=== PATIENT | female | born 1980 | race Caucasian/White ===

== ENCOUNTER 2024-12-13 11:21 | Emergency (ER) | payer OTHER, SELFPAY ==
[2024-12-13 11:24] VITALS: BP 150/94
--- NOTE | 2024-12-13 12:12 | ED.GENMED ---
History of Present Illness
General
Chief Complaint: Abdominal Pain
Source: patient and career development facilitator
Exam Limitations: none
Time Seen by Provider: 12/13/24 11:53
History of Present Illness
History of Present Illness:
44yoF with a history of hyperlipidemia, hypothyroidism, bipolar disorder, intellectual disability presenting with her aides for evaluation of abdominal pain. Patient woke up this morning and was complaining of pain near her periumbilical region.
She is also experiencing nausea and had 4 episodes of vomiting. She was asymptomatic when going to bed yesterday evening. Of note, patient was at [facility] yesterday for the first time the season. She is otherwise asymptomatic and denies any
fevers, diarrhea, urinary symptoms. No previous abdominal surgeries.
Phy Exam
General Physical Exam
General Presentation: well appearing and no apparent distress
General Skin: warm and dry
General Habitus: normal
ENT Exam
ENT Exam: normocephalic
Cardiovascular Exam
Cardiovascular Exam: regular rate/rhythm
Pulmonary Exam
Pulmonary Exam: lungs clear, no respiratory distress, no rales, no crackles, no rhonchi and no wheezing
Gastrointestinal Exam
Gastrointestinal Exam: soft, non distended and other (Mild generalized tenderness. No rebound or guarding)
Course
Orders/Labs/Results
Orders:
Orders
12/13/24 12:10
0.9% Sodium Chloride 1000 ml [Nss] 1,000 ml IV BOLUS
Ketorolac [Toradol] 15 mg IV NOW STA
Ondansetron Injectable [Zofran] 4 mg IV NOW STA
12/13/24 12:11
CT Abd/pelvis W Iv Cont Urgent
Comment:
Reason For Exam: periumbilical pain, vomiting
Test Result ONCE
12/13/24 12:16
Complete Blood Count/With Diff Urgent
12/13/24 13:11
Comprehensive Metabolic Panel Urgent
HCG, Serum Qualitative Screen Urgent
Lipase Urgent
12/13/24 16:07
US Abdomen Limited Urgent
Comment:
Reason For Exam: abd pain, abnormal GB on CT
Abnormal Lab Results
12/13/24 12/13/24
12:16 13:11
RBC 3.71 L 10^6/uL
(4.20-5.40)
Hgb 11.9 L g/dL
(12.0-16.0)
Hct 34.3 L %
(37.0-47.0)
MCH 32.1 H pg
(27.0-31.0)
Abs Immat Gran (auto) 0.1 H 10^3/uL
(0-0.05)
Absolute Monos (auto) 0.7 H 10^3/uL
(0.1-0.6)
Immature Gran % 0.9 H %
(0-0.5)
Monocytes % 9.5 H %
(1.7-9.3)
Glucose 102 H mg/dl
(70-99)
ALT 36 H U/L
(0-35)
Albumin 3.4 L g/dl
(3.5-5.0)
12/13/24 12:16
12/13/24 13:11
Vital Signs
Initial and Last Documented VS:
Initial Vital Signs
Temp Pulse Resp BP Pulse Ox
98.6 F 95 16 150/94 95
12/13/24 11:24 12/13/24 11:24 12/13/24 11:24 12/13/24 11:24 12/13/24 11:24
Last Documented Vital Signs
Temp Pulse Resp BP Pulse Ox
98.6 F 87 18 144/86 96
12/13/24 11:24 12/13/24 15:00 12/13/24 15:00 12/13/24 15:00 12/13/24 15:00
MDM/Problems Addressed
Differential Diagnosis Includes:
44yoF here with periumbilical abd pain and n/v that began this morning. [place]. No fevers or diarrhea. VSS. She is well appearing in no distress. No signs of peritonitis on abdominal exam. Differential diagnosis includes
but is not limited to: gastroenteritis, viral illness, appendicitis, less likely SBO
Initial ED plan: Check abdominal labs and CT abdomen. IV Toradol, Zofran, and fluid bolus for symptoms.
*Pulse Oximetry
SaO2: 95
Oxygen Mode of Delivery: Room air
Patient hypoxic: no (95%)
*Critical Care Note
Total Time (30-74mins, 75-104mins- exclusive of procedures): Not Applicable
Update Note
Update Note:
Labs unremarkable including normal white count, electrolytes, renal function. CT shows mild to moderate gallbladder distention without surrounding inflammatory changes. Lung nodule seen incidentally which father was notified of and copy of radiology
report provided. RUQ ultrasound added which shows cholelithiasis but no signs of cholecystitis. Patient is feeling much better on reassessment. There is no RUQ tenderness noted on repeat abdominal exam. She has not had any vomiting throughout ED
stay and is requesting discharge. Prescription for Zofran given and advised bland diet. Advised f/u with PCP and ED return precautions reviewed. Patient discharged in stable condition.
ED Attending Note
-
Portions of this chart may have been created with voice recognition software.� Occasional wrong word or��sound alike� substitutions may have occurred due to the inherent limitations of voice recognition software.
Discharge Plan
Departure
Patient Disposition: Home (Routine Discharge)
Date of Disposition: 12/13/24
Time of Disposition: 17:20
Patient with high blood pressure during this ER visit?: Yes
Discharge Problem:
Nonspecific abdominal pain, Nausea and vomiting, Incidental lung nodule
Instructions: Abdominal Pain
Prescriptions:
New
ondansetron 4 mg tablet,disintegrating
4 mg PO Q6H PRN (Reason: nausea and vomiting) Qty: 20 0RF
Referrals:
UNKNOWN - PT DOES,NOT KNOW [Family Provider]
Activity Restrictions/Additional Instructions:
Take Zofran as needed for nausea. Eat a bland diet (bananas, rice, applesauce, toast) until symptoms improve.
Please follow-up with your family doctor regarding the lung nodule seen on today's CT scan. Return to the ER with any worsening symptoms including severe pain or fevers.
Interventions
Interventions:
*Risk Screen - Suicide Last Done: 12/13/24 11:24
*General Assessment Last Done: 12/13/24 11:24
*ED- Fall Risk Assessment Last Done: 12/13/24 11:24
*ED COVID-19 Vaccine History Last Done: 12/13/24 11:24
*Nursing Disposition Last Done: 12/13/24 17:19
EF-Ombgpt-Hqlddhsvsa Assessment Last Done: 12/13/24 12:37
Discharge Date and Time
Discharge Date/Time: 12/13/24 17:27
Print Language: GREENLANDIC
[2024-12-13] MEDS: ZOFRAN 4 MG IV (12:17)
[2024-12-13] MEDS: TORADOL 15 MG IV (12:17)
[2024-12-13] MEDS: NSS 1000 IV (12:18)
[2024-12-13 12:34] LABS: Hematocrit 34.3 % (37.0-47.0); Hemoglobin 11.9 g/dL (12.0-16.0); Mean Corp Hgb Conc. 34.7 g/dL (33.0-37.0); Mean Corpuscular Volume 92.5 fL (81.0-99.0); Nucleated Red Blood Cells % 0 %; Platelet Count 228 10^3/uL (130-400); Red Cell Dist. Width 12.2 % (11.5-14.5)
[2024-12-13 13:37] LABS: HCG, Serum Qualitative Screen Negative
[2024-12-13 13:53] LABS: ALT (SGPT) 36 U/L (0-35); AST (SGOT) 31 U/L (14-36); Albumin 3.4 g/dl (3.5-5.0); Alkaline Phosphatase 67 U/L (38-126); Blood Urea Nitrogen 13 mg/dl (7-17); Calcium 8.8 mg/dl (8.4-10.2); Carbon Dioxide 27 mmol/L (22-30); Chloride 107 mmol/L (98-107); Glucose 102 mg/dl (70-99); Lipase 57 U/L (23-300); Potassium 4.2 mmol/L (3.5-5.1); Sodium 135 mmol/L (135-145); Total Protein 6.5 g/dl (6.3-8.2); eGFR > 60.00
[2024-12-13 15:00] VITALS: BP 144/86
== END 2024-12-13 17:27 | disposition home or self-care (01) ==
LOC: EMR 11:21
PROVIDERS: Physician Assistant; EMERGENCY PHYSICIAN Emergency Medicine
DX: R10.9 Unspecified abdominal pain (principal); E78.00 Pure hypercholesterolemia, unspecified; E03.9 Hypothyroidism, unspecified; F31.9 Bipolar disorder, unspecified; F79 Unspecified intellectual disabilities
CPT/HCPCS: 99284; 74177; 76705; 80053; 83690; 84703; 85025; Q9967